=== PATIENT | male | born 1955 | race Caucasian/White ===

== ENCOUNTER 2017-12-24 19:04 | Emergency (ER) | payer MEDICARE, MEDICAID ==
[~2017-12-24] VITALS: Ht 647.4 cm; Wt 67.5 kg
[2017-12-24 20:18] VITALS: BP 136/84
[2017-12-24] MEDS ORDERED: ipratropium/albuterol 3ml nebule NEB ONE (20:30)
[2017-12-24] MEDS ORDERED: GUAI600T45 PO (20:33)
[2017-12-24] MEDS ORDERED: AZIT-55 PO (20:33)
[2017-12-24] MEDS ORDERED: ALBU8.5H8 IH (20:33)
[2017-12-24] MEDS ORDERED: ADV50250 INH (20:33)
[2017-12-24] MEDS ORDERED: NICO-687 TOP (20:33)
== END 2017-12-24 21:23 | disposition home or self-care (01) ==
LOC: ER 19:05
DX: J20.9 Acute bronchitis, unspecified (principal); J06.9 Acute upper respiratory infection, unspecified; J44.9 Chronic obstructive pulmonary disease, unspecified; F17.200 Nicotine dependence, unspecified, uncomplicated; Z71.6 Tobacco abuse counseling; Z60.2 Problems related to living alone; Z88.0 Allergy status to penicillin; Z88.8 Allergy status to other drugs, medicaments and biological substances; Z79.899 Other long term (current) drug therapy
CPT/HCPCS: 94640; 94760; 99283